=== PATIENT | male | born 1955 | race Caucasian/White ===

== ENCOUNTER 2025-05-05 10:50 | Day surgery (SDC) | payer OTHER, MEDICARE ==
[2025-05-05 12:58] VITALS: BP 121/62; PULSE 56; RESP 17; TEMP 98.1
== END 2025-05-05 12:58 | disposition home or self-care (01) ==
LOC: FINFUSION 10:50 → FM/S 10:53 → FINFUSION 12:58
PROVIDERS: ATTEND Internal Medicine
DX: J02.8 Acute pharyngitis due to other specified organisms (principal); B96.21 Shiga toxin-producing Escherichia coli [E. coli] [STEC] O157 as the cause of diseases classified elsewhere
CPT/HCPCS: 96365

== ENCOUNTER 2025-05-06 11:53 | Day surgery (SDC) | payer OTHER, MEDICARE ==
[2025-05-06 15:04] VITALS: BP 121/68; PULSE 69; RESP 18; TEMP 98.5
== END 2025-05-06 14:00 | disposition home or self-care (01) ==
LOC: FINFUSION 11:53 → FM/S 11:53 → FINFUSION 14:00
PROVIDERS: ATTEND Internal Medicine
DX: J02.8 Acute pharyngitis due to other specified organisms (principal); B96.21 Shiga toxin-producing Escherichia coli [E. coli] [STEC] O157 as the cause of diseases classified elsewhere

== ENCOUNTER 2025-05-07 12:06 | Day surgery (SDC) | payer OTHER, MEDICARE ==
[2025-05-07 14:42] VITALS: BP 125/80; PULSE 77; RESP 18; TEMP 98.7
== END 2025-05-07 14:42 | disposition home or self-care (01) ==
LOC: FINFUSION 12:06 → FM/S 12:08 → FINFUSION 14:42
PROVIDERS: ATTEND Internal Medicine
DX: J02.8 Acute pharyngitis due to other specified organisms (principal); B96.21 Shiga toxin-producing Escherichia coli [E. coli] [STEC] O157 as the cause of diseases classified elsewhere

== ENCOUNTER 2025-05-08 11:53 | Day surgery (SDC) | payer OTHER, MEDICARE ==
[2025-05-08 12:05] VITALS: PULSE 54; RESP 18
[2025-05-08 12:48] VITALS: BP 137/60; TEMP 98
== END 2025-05-08 12:00 | disposition home or self-care (01) ==
LOC: FM/S 11:53 → FINFUSION 11:53
PROVIDERS: ATTEND Internal Medicine
DX: J02.8 Acute pharyngitis due to other specified organisms (principal); B96.21 Shiga toxin-producing Escherichia coli [E. coli] [STEC] O157 as the cause of diseases classified elsewhere

== ENCOUNTER 2025-05-09 12:04 | Day surgery (SDC) | payer OTHER, MEDICARE ==
[2025-05-09 13:38] VITALS: BP 125/84; PULSE 69; RESP 18
== END 2025-05-09 13:39 | disposition home or self-care (01) ==
LOC: FINFUSION 12:04 → FM/S 12:07 → FINFUSION 13:39
PROVIDERS: ATTEND Internal Medicine
DX: J02.8 Acute pharyngitis due to other specified organisms (principal); B96.21 Shiga toxin-producing Escherichia coli [E. coli] [STEC] O157 as the cause of diseases classified elsewhere
CPT/HCPCS: 96365

== ENCOUNTER 2025-05-10 12:20 | Day surgery (SDC) | payer OTHER, MEDICARE ==
[2025-05-10 13:09] VITALS: BP 125/72; PULSE 69; RESP 18; TEMP 98.2
== END 2025-05-10 13:09 | disposition home or self-care (01) ==
LOC: FM/S 12:20 → FINFUSION 12:20
PROVIDERS: ATTEND Internal Medicine
DX: J02.8 Acute pharyngitis due to other specified organisms (principal); B96.21 Shiga toxin-producing Escherichia coli [E. coli] [STEC] O157 as the cause of diseases classified elsewhere

== ENCOUNTER 2025-05-11 11:12 | Day surgery (SDC) | payer OTHER, MEDICARE ==
[2025-05-11 11:45] VITALS: BP 129/79; PULSE 71; RESP 18; TEMP 98.1
== END 2025-05-11 12:05 | disposition home or self-care (01) ==
LOC: FINFUSION 11:12 → FM/S 11:13 → FINFUSION 12:05
PROVIDERS: ATTEND Internal Medicine
DX: J02.8 Acute pharyngitis due to other specified organisms (principal); B96.21 Shiga toxin-producing Escherichia coli [E. coli] [STEC] O157 as the cause of diseases classified elsewhere

== ENCOUNTER 2025-05-12 11:41 | Day surgery (SDC) | payer OTHER, MEDICARE ==
[2025-05-12 13:19] VITALS: BP 120/77; PULSE 69; RESP 18; TEMP 98.2
== END 2025-05-12 13:26 | disposition home or self-care (01) ==
LOC: FINFUSION 11:41 → FM/S 11:42 → FINFUSION 13:26
PROVIDERS: ATTEND Internal Medicine
DX: J02.8 Acute pharyngitis due to other specified organisms (principal); B96.21 Shiga toxin-producing Escherichia coli [E. coli] [STEC] O157 as the cause of diseases classified elsewhere

== ENCOUNTER 2025-05-13 12:13 | Day surgery (SDC) | payer OTHER, MEDICARE ==
[2025-05-13 13:03] VITALS: BP 120/86; PULSE 64; RESP 16; TEMP 98.2
== END 2025-05-13 13:03 | disposition home or self-care (01) ==
LOC: FM/S 12:13 → FINFUSION 12:13
PROVIDERS: ATTEND Internal Medicine
DX: J02.8 Acute pharyngitis due to other specified organisms (principal); B96.21 Shiga toxin-producing Escherichia coli [E. coli] [STEC] O157 as the cause of diseases classified elsewhere
CPT/HCPCS: 96365

== ENCOUNTER 2025-05-14 14:02 | Day surgery (SDC) | payer OTHER, MEDICARE ==
[2025-05-14 15:34] VITALS: BP 140/69; PULSE 78; RESP 18; TEMP 98.7
== END 2025-05-14 15:35 | disposition home or self-care (01) ==
LOC: FINFUSION 14:02 → FM/S 14:03 → FINFUSION 15:35
PROVIDERS: ATTEND Internal Medicine
DX: J02.8 Acute pharyngitis due to other specified organisms (principal); B96.21 Shiga toxin-producing Escherichia coli [E. coli] [STEC] O157 as the cause of diseases classified elsewhere